=== PATIENT | male | born 1985 ===

== ENCOUNTER 2023-06-18 08:54 | Day surgery (SDC) | payer BC ==
[2023-06-18] MEDS: Lactated Ringers 1,000 ML IV SCH (09:24)
[2023-06-18] MEDS ORDERED: Ketamine 200 MG/20 ML MDV ONE (09:55)
[2023-06-18] MEDS ORDERED: fentaNYL 50 MCG/ML SDV ONE ×2 (09:55)
[2023-06-18] MEDS ORDERED: Propofol 200 MG/20 ML SDV ONE ×2 (09:55)
[2023-06-18] MEDS ORDERED: Midazolam 1 MG/ML 2 ML SDV ONE (09:55)
== END 2023-06-18 11:00 | disposition home or self-care (01) ==
LOC: CC.SDS 08:54
PROVIDERS: ATTEND Family Medicine
DX: K52.9 Noninfective gastroenteritis and colitis, unspecified (principal); E66.9 Obesity, unspecified; Z68.41 Body mass index [BMI] 40.0-44.9, adult; R50.9 Fever, unspecified; Z79.899 Other long term (current) drug therapy
CPT/HCPCS: 00811; J2250; J2704; J3010; J3490; J7120